=== PATIENT | male | born 1965 | race Caucasian/White ===

== ENCOUNTER 2019-11-23 07:37 | Emergency (ER) | payer SELFPAY ==
[2019-11-23 08:56] LABS: ABSOLUTE BASOPHILS # (AUTO) 0.1 10^3/uL (0.0-0.2); ABSOLUTE EOSINOPHILS # (AUTO) 0.1 10^3/uL (0.0-0.6); ABSOLUTE MONOCYTES (AUTO) 0.7 10^3/uL (0.1-1.4); ABSOLUTE NEUT (AUTO) 2.8 10^3/uL (1.7-8.2); BASOPHILS % (AUTO) 1.4 % (0-2); HEMATOCRIT 35.1 % (37.9-51.0); HEMOGLOBIN 11.6 g/dL (13.5-17.0); MEAN CORPUSCULAR HEMOGLOBIN 27.3 pg (27.0-33.4); MEAN CORPUSCULAR HGB CONC 33.1 g/dL (32.0-36.0); MEAN CORPUSCULAR VOLUME 82 fl (80-97); MONOCYTES % (AUTO) 12.8 % (3-13); PLATELET COUNT 368 10^3/uL (150-450); RED BLOOD COUNT 4.26 10^6/uL (4.35-5.55); RED CELL DISTRIBUTION WIDTH 18.5 % (11.5-14.0); SEGMENTED NEUTROPHILS % (AUTO) 48.8 % (42-78); TOTAL CELLS COUNTED % (AUTO) 100 %; WHITE BLOOD COUNT 5.8 10^3/uL (4.0-10.5)
[2019-11-23 09:20] LABS: ALBUMIN 4.9 g/dL (3.5-5.0); ALKALINE PHOSPHATASE 86 U/L (38-126); ANION GAP 11 (5-19); ASPARTATE AMINO TRANSFERASE 33 U/L (17-59); BILIRUBIN,DIRECT 0.1 mg/dL (0.0-0.4); BILIRUBIN,TOTAL 0.8 mg/dL (0.2-1.3); BLOOD UREA NITROGEN 18 mg/dL (7-20); CALCIUM 9.8 mg/dL (8.4-10.2); CARBON DIOXIDE 22 mmol/L (22-30); CHLORIDE 105 mmol/L (98-107); GLUCOSE 167 mg/dL (75-110); POTASSIUM 3.7 mmol/L (3.6-5.0); TOTAL PROTEIN 8.7 g/dL (6.3-8.2)
[2019-11-23] MEDS ORDERED: ONDANSETRON HCL INJ/PF 4 MG/2 ML SDV IV ONE (09:21)
--- NOTE | 2019-11-23 09:50 | ER Document Report ---
ED General - General Chief Complaint: Abdominal Pain Stated Complaint: ABDOMINAL PAIN Time Seen by Provider: 11/23/19 08:44 Primary Care Provider: MURIEL WEBB MD [ACTIVE STAFF] - Follow up as needed GUSTAVO LEACH MD [COMMUNITY BASED STAFF] - Follow up as needed Mode of Arrival: Ambulatory Information source: Patient TRAVEL OUTSIDE OF THE [place] IN LAST 30 DAYS: No - HPI Onset: Other - over the last week Onset/Duration: Gradual Quality of pain: Cramping, Sharp Severity: Severe Pain Level: 5 Associated symptoms: Nausea Exacerbated by: Other - palpation of stomach, movement of abdomen Relieved by: Denies Similar symptoms previously: No Recently seen / treated by doctor: Yes - patient was seen at an outside hospital for chest pain last week Notes: 54 year old male with a history of Hypertension, GERD s/p Fundoplication, Hiatal Hernia and Chronic Abdominal Pains/Nausea here in the ER for severe lower abdominal pain with nausea and sweating over the last week. The patient says he is visiting from [place]. The patient says he has chronic abdominal pain but this is different and much more severe. The patient was tachycardic, hypertensive, and diaphoretic on ER arrival. - Related Data Allergies/Adverse Reactions: hydroxyzine Allergy (Verified 11/23/19 09:32) ketorolac [From Toradol] Allergy (Verified 11/23/19 09:32) paroxetine [From Paxil] Allergy (Verified 11/23/19 09:32) Penicillins Allergy (Verified 11/23/19 09:32) prochlorperazine [From Compazine] Allergy (Verified 11/23/19 09:32) diphenhydramine [From Benadryl] Adverse Reaction (Verified 11/23/19 09:32) Past Medical History - General Information source: Patient - Social History Smoking Status: Current Every Day Smoker Frequency of alcohol use: None Drug Abuse: None Family History: Reviewed & Not Pertinent - Past Medical History Cardiac Medical History: Reports: Hx Hypertension GI Medical History: Reports: Other - Chronic Abdominal Pains, Chronic Nausea Review of Systems - Review of Systems Constitutional: Diaphoresis EENT: No symptoms reported Cardiovascular: No symptoms reported Respiratory: No symptoms reported Gastrointestinal: Abdominal pain, Nausea Genitourinary: No symptoms reported Male Genitourinary: No symptoms reported Musculoskeletal: No symptoms reported Skin: No symptoms reported Hematologic/Lymphatic: No symptoms reported Neurological/Psychological: No symptoms reported -: Yes All other systems reviewed and negative Physical Exam - Vital signs Vitals: Temp Pulse Resp BP Pulse Ox 98.6 F 140 H 24 H 144/111 H 98 11/23/19 07:41 11/23/19 07:41 11/23/19 07:41 11/23/19 07:41 11/23/19 07:41 - Notes Notes: GENERAL: somewhat ill-appearing, sweating, in moderate acute distress. HEAD: Atraumatic, normocephalic. EYES: Pupils equal round and reactive to light, extraocular movements intact, sclera anicteric, conjunctiva are normal. ENT: External ears normal, nares patent, oropharynx clear without exudates. M oist mucous membranes. NECK: Normal range of motion, supple without lymphadenopathy or JVD. LUNGS: Breath sounds clear to auscultation bilaterally and equal. No wheezes rales or rhonchi. HEART: Tachycardic with normal rhythm without murmurs, rubs or gallops. ABDOMEN: Soft, severe lower abdominal tenderness (worse on right than left). Normoactive bowel sounds. Guarding noted with no rebound. No masses appreciated. EXTREMITIES: Normal range of motion, no pitting or edema. No clubbing or cyanos is. NEUROLOGICAL: Cranial nerves II through XII grossly intact. Normal speech, normal gait. PSYCH: Normal mood, normal affect. SKIN: Warm, Dry, normal turgor, no rashes or lesions noted. Course - Re-evaluation Re-evalutation: 11/23/19 20:57 The patient came to the ER for abdominal pain with nausea and vomiting. Lab work and CT were unremarkable. Patient was initially diaphoretic and in what appeared to be a fair amount of pain. After treatment with IV pain medication and blood pressure medication his symptoms and vitla signs improved dramatically. There may a component of drug seeking and drug withdrawal. Patient is not from here so no prior images or labs were available at the time of his ER visit. Patient DCed and told to follow up with his PCP. - Vital Signs Vital signs: Temp Pulse Resp BP Pulse Ox 98.3 F 140 H 12 140/87 H 98 11/23/19 08:00 11/23/19 07:41 11/23/19 14:00 11/23/19 14:00 11/23/19 14:00 - Laboratory Result Diagrams: 11/23/19 08:13 11/23/19 08:13 Laboratory results interpreted by me: 11/23/19 11/23/19 11/23/19 08:13 08:13 09:56 RBC 4.26 L Hgb 11.6 L Hct 35.1 L RDW 18.5 H Creatinine 1.27 H Est GFR (MDRD) Non-Af 59 L Glucose 167 H Total Protein 8.7 H Urine Protein 100 H - Diagnostic Test Radiology reviewed: Image reviewed, Reports reviewed Discharge - Discharge Clinical Impression: Abdominal pain Qualifiers: Abdominal location: generalized Qualified Code(s): R10.84 - Generalized abdominal pain Nausea & vomiting Qualifiers: Vomiting type: unspecified Vomiting Intractability: non-intractable Qualified Code(s): R11.2 - Nausea with vomiting, unspecified Condition: Stable Disposition: HOME, SELF-CARE Instructions: Abdominal Pain ([facility]), Nausea or Vomiting, Nonspecific ([facility]) Additional Instructions: You came to the ER for abdominal pain, nausea, and vomiting. You had unremarkable blood work except for slightly elevated glucose. You had a CT scan of your abdomen/pelvis which showed no acute process. Follow up with your primary care doctor and consider follow up with a GI Doctor since it seems you have chronic GI issues. If you plan on staying in the area long, you can follow up with the providers listed. Prescriptions: Famotidine 40 mg PO BID PRN #30 tablet PRN Reason: Metoclopramide HCl [Reglan 10 mg Tablet] 10 mg PO Q8H PRN #20 tablet PRN Reason: Referrals: MURIEL WEBB MD [ACTIVE STAFF] - Follow up as needed GUSTAVO LEACH MD [COMMUNITY BASED STAFF] - Follow up as needed
[2019-11-23] MEDS ORDERED: MORPHINE SULFATE 10 MG/ML INJ IV ONE (09:57)
[2019-11-23] MEDS ORDERED: NORMAL SALINE 1000 ML 1,000 ML IV ONE (09:57)
[2019-11-23] MEDS ORDERED: METOCLOPRAMIDE HCL INJ/PF 10 MG/2 ML SDV IV ONE (09:58)
[2019-11-23 10:47] LABS: APPEARANCE,URINE TURBID; BILIRUBIN,URINE NEGATIVE (NEGATIVE); COLOR,URINE AMBER; GLUCOSE, URINE NEGATIVE (NEGATIVE); KETONES,URINE NEGATIVE (NEGATIVE); LEUKOCYTE ESTERASE,URINE NEGATIVE (NEGATIVE); NITRITE,URINE NEGATIVE (NEGATIVE); PROTEIN,URINE 100 mg/dL (NEGATIVE); UROBILINOGEN,URINE NEGATIVE mg/dL (<2.0)
[2019-11-23 10:58] LABS: ADD MANUAL MICROSCOPIC YES
[2019-11-23 10:59] LABS: AMORPHOUS SEDIMENT,UR 2+; BACTERIA,URINE 3+ /HPF; RBC,URINE NONE SEEN /HPF; WBC,URINE 0-1 /HPF
--- NOTE | 2019-11-23 11:11 | EKG REPORT ---
SEVERITY:- BORDERLINE ECG - SINUS TACHYCARDIA PROBABLE LEFT ATRIAL ABNORMALITY : Confirmed by: Louise Kitchen MD 23-Nov-2019 11:10:16
--- NOTE | 2019-11-23 11:47 | RADIOLOGY REPORT (SQ) ---
EXAM DESCRIPTION: CT ABD/PELVIS WITH IV ONLY IMAGES COMPLETED DATE/TIME: 11/23/2019 10:22 am REASON FOR STUDY: eval for appendicitis. Right lower quadrant and periumbilical pain. COMPARISON: None. TECHNIQUE: CT scan of the abdomen and pelvis performed using helical scanning technique with dynamic intravenous contrast injection. No oral contrast. Images reviewed with lung, soft tissue, and bone windows. Reconstructed coronal and sagittal MPR images reviewed. Delayed images for evaluation of the urinary system also acquired. All images stored on PACS. All CT scanners at this facility use dose modulation, iterative reconstruction, and/or weight based d osing when appropriate to reduce radiation dose to as low as reasonably achievable (ALARA). [facility]: Dose Right [facility]: CareDose [facility]: Dose Right [facility]: Teradose 4D [facility]: [employer] CONTRAST TYPE AND DOSE: 98 mL Omnipaque 350- low osmolar. RENAL FUNCTION: GFR > 60. RADIATION DOSE: CT Rad equipment meets quality standard of care and radiation dose reduction techniq ues were employed. CTDIvol: 7.5 - 10.3 mGy. DLP: 1069 mGy-cm.. LIMITATIONS: None. FINDINGS: LOWER CHEST: No significant findings. No nodules or infiltrates. LIVER: Normal size. No masses. No dilated ducts. SPLEEN: Normal size. No focal lesions. PANCREAS: No masses. No significant calcifications. No adjacent inflammation or peripancreatic fluid collections. Pancreatic duct not dilated. GALLBLADDER: No identified stones by CT criteria. No inflammatory changes to suggest cholecystitis. ADRENAL GLANDS: No significant masses or asymmetry. RIGHT KIDNEY AND URETER: No solid masses. No significant calcifications. No hydronephrosis or hyd roureter. LEFT KIDNEY AND URETER: Technically too small to characterize left superior pole renal cortical lesio n demonstrates no enhancement on postcontrast images, probably a small renal cortical cyst. No sign ificant calcifications. No hydronephrosis or hydroureter. AORTA AND VESSELS: No aneurysm. No dissection. Renal arteries, SMA, celiac without stenosis. RETROPERITONEUM: No retroperitoneal adenopathy, hemorrhage or masses. BOWEL AND PERITONEAL CAVITY: Colonic diverticulosis without evidence of diverticulitis. No bowel obs truction. No bowel wall thickening. No significant inflammatory change. No ascites or pneumoperito neum. APPENDIX: Normal. PELVIS: No mass. No free fluid. Normal bladder. ABDOMINAL WALL: No masses. No hernias. BONES: Vertebral body hemangioma at L4. No suspicious bone lesions. OTHER: No other significant finding. IMPRESSION: 1. Appendix is normal. No acute abnormality to explain the patient's symptoms. 2. Colonic diverticulosis without evidence of diverticulitis. TECHNICAL DOCUMENTATION: JOB ID: [id number] Quality ID # [id number]: Final reports with documentation of one or more dose reduction techniques (e.g., Au tomated exposure control, adjustment of the mA and/or kV according to patient size, use of iterative reconstruction technique) 2010 [employer]- All Rights Reserved Reading location - IP/workstation name: [email or web address]
[2019-11-23] MEDS ORDERED: LABETALOL HCL INJ 20 MG/4 ML DISP.SYRIN IV ONE (11:53)
[2019-11-23] MEDS ORDERED: FAMOTIDINE INJ/PF 20 MG/2 ML SDV IV ONE (11:53)
[2019-11-23 14:57] VITALS: BP 140/87
== END 2019-11-23 14:57 | disposition home or self-care (01) ==
LOC: ER 07:37
DX: R10.84 Generalized abdominal pain (principal); R11.2 Nausea with vomiting, unspecified; R10.30 Lower abdominal pain, unspecified; R61 Generalized hyperhidrosis; R00.0 Tachycardia, unspecified; I10 Essential (primary) hypertension; Z88.8 Allergy status to other drugs, medicaments and biological substances; Z88.0 Allergy status to penicillin; F17.200 Nicotine dependence, unspecified, uncomplicated
CPT/HCPCS: 93005; 99284; 96361; 96374; 96375; 36415; 83690; 85025; 80053; 81001; 74177; 93010; J3490; J2765; J2270; J2405; J7030; S0028

== ENCOUNTER 2019-11-23 20:43 | Emergency (ER) | payer SELFPAY ==
[2019-11-23] MEDS ORDERED: HALOPERIDOL LACTATE INJ 5 MG/1 ML VIAL IM ONE (22:22)
[2019-11-23] MEDS ORDERED: BENZTROPINE MESYLATE INJ 2 MG/2 ML AMPULE IM STA (22:22)
--- NOTE | 2019-11-23 22:26 | ER Document Report ---
ED General - General Chief Complaint: Abdominal Pain Stated Complaint: NAUSEA VOMITING Time Seen by Provider: 11/23/19 22:01 Notes: 54 year old male moved here to visit family after living in [facility] recently. No fever or chills. Abdominal pain and h/o cyclic vomiting, abdominal migraines and chronic pain - neck, low back and pacemaker site. No chest pain and no sob. Recently had comprehensive workup here including blood work and ct and has had distant abdominal surgery to include hernia repair and esha fundiplication. TRAVEL OUTSIDE OF THE [place] IN LAST 30 DAYS: No - Related Data Allergies/Adverse Reactions: hydroxyzine Allergy (Verified 11/23/19 21:02) ketorolac [From Toradol] Allergy (Verified 11/23/19 21:02) paroxetine [From Paxil] Allergy (Verified 11/23/19 21:02) Penicillins Allergy (Verified 11/23/19 21:02) prochlorperazine [From Compazine] Allergy (Verified 11/23/19 21:02) diphenhydramine [From Benadryl] Adverse Reaction (Verified 11/23/19 21:02) Past Medical History - Social History Smoking Status: Former Smoker Family History: Reviewed & Not Pertinent Patient has homicidal ideation: No - Past Medical History Cardiac Medical History: Reports: Hx Hypertension Pulmonary Medical History: Reports: Hx COPD GI Medical History: Reports: Hx Gastroesophageal Reflux Disease Past Surgical History: Reports: Hx Abdominal Surgery, Hx Cardiac Surgery - pacemaker Review of Systems - Review of Systems Constitutional: No symptoms reported EENT: No symptoms reported Cardiovascular: No symptoms reported Respiratory: No symptoms reported Gastrointestinal: See HPI Genitourinary: No symptoms reported Male Genitourinary: No symptoms reported Musculoskeletal: No symptoms reported Skin: No symptoms reported Hematologic/Lymphatic: No symptoms reported Neurological/Psychological: No symptoms reported Physical Exam - Vital signs Vitals: Resp Pulse Ox 12 97 11/23/19 20:59 11/23/19 20:59 Interpretation: Normal - General General appearance: Appears well, Alert - HEENT Head: Normocephalic, Atraumatic Eyes: Normal Pupils: PERRL - Respiratory Respiratory status: No respiratory distress Chest status: Nontender Breath sounds: Normal Chest palpation: Normal - Cardiovascular Rhythm: Regular Heart sounds: Normal auscultation Murmur: No - Abdominal Inspection: Normal Distension: No distension Bowel sounds: Normal Tenderness: Nontender Organomegaly: No organomegaly - Back Back: Normal, Nontender - Extremities General upper extremity: Normal inspection, Nontender, Normal color, Normal ROM, Normal temperature General lower extremity: Normal inspection, Nontender, Normal color, Normal ROM, Normal temperature, Normal weight bearing. No: Bentley's sign - Neurological Neuro grossly intact: Yes Cognition: Normal Orientation: AAOx4 Jew[place] Coma Scale Eye Opening: Spontaneous [place] Coma Scale Verbal: Oriented [place] Coma Scale Motor: Obeys Commands [place] Coma Scale Total: 15 Speech: Normal Motor strength normal: LUE, RUE, LLE, RLE Sensory: Normal - Psychological Associated symptoms: Normal affect, Normal mood - Skin Skin Temperature: Warm Skin Moisture: Dry Skin Color: Normal Course - Re-evaluation Re-evalutation: 11/24/19 00:52 MDM 54 year old with cyclic vomiting. Better here after treatment. Smoker - including marijuania and elevated BP. Knows to follow up. - Vital Signs Vital signs: Temp Pulse Resp BP Pulse Ox 98.5 F 109 H 17 162/108 H 96 11/24/19 01:03 11/23/19 21:03 11/24/19 01:00 11/24/19 01:00 11/24/19 01:00 Discharge - Discharge Clinical Impression: Cyclical vomiting, Tetrahydrocannabinol (THC) use disorder, moderate, dependence Condition: Good Disposition: HOME, SELF-CARE Instructions: Abdominal Pain ([facility]), Antinausea Medication ([facility]), Family Physicians / Practices, Vomiting ([facility]) Additional Instructions: See a primary doctor in follow up. Rest, Take your medicine as directed. Your blood pressure was elevated and needs to be rechecked.
[2019-11-23 23:21] LABS: URINE AMPHETAMINES SCREEN NEGATIVE; URINE BARBITURATES SCREEN NEGATIVE; URINE BENZODIAZEPINES SCREEN NEGATIVE; URINE COCAINE SCREEN NEGATIVE; URINE METHADONE SCREEN NEGATIVE; URINE PHENCYCLIDINE SCREEN NEGATIVE
[2019-11-23 23:22] LABS: URINE MARIJUANA (THC) SCREEN UNCONFIRMED POSITIVE
[2019-11-24 01:03] VITALS: BP 162/108
== END 2019-11-24 01:07 | disposition home or self-care (01) ==
LOC: ER 20:43
DX: R11.15 Cyclical vomiting syndrome unrelated to migraine (principal); F12.20 Cannabis dependence, uncomplicated; R10.9 Unspecified abdominal pain; R11.2 Nausea with vomiting, unspecified; Z88.8 Allergy status to other drugs, medicaments and biological substances; Z88.0 Allergy status to penicillin; Z87.891 Personal history of nicotine dependence; I10 Essential (primary) hypertension; J44.9 Chronic obstructive pulmonary disease, unspecified
CPT/HCPCS: 99284; 96372; 80307; J0515; J1630

== ENCOUNTER 2020-02-17 15:12 | Emergency (ER) | payer SELFPAY ==
[2020-02-17] MEDS ORDERED: ONDANSETRON HCL INJ/PF 4 MG/2 ML SDV IV ONE (15:24)
[2020-02-17] MEDS ORDERED: NORMAL SALINE 1000 ML 1,000 ML IV ONE (15:26)
[2020-02-17] MEDS ORDERED: ONDANSETRON HCL INJ/PF 4 MG/2 ML SDV ONE (15:29)
[2020-02-17] MEDS ORDERED: MORPHINE SULFATE 10 MG/ML INJ IV ONE (15:33)
--- NOTE | 2020-02-17 15:33 | ER Document Report ---
ED Medical Screen (RME) - General Chief Complaint: Abdominal Pain Stated Complaint: UPPER ABDOMINAL PAIN Time Seen by Provider: 02/17/20 15:24 Mode of Arrival: Wheelchair Information source: Patient Notes: 54-year-old male presented to ED for complaint of severe abdominal pain. He is diaphoretic he is grunting in pain. We have started IV we have started blood work have ordered a CT IV contrasted abdomen pelvis he does have a history of pancreatitis hepatitis C and high blood pressure. His blood pressure is triple over triple. He is in a lot of distress. He has been given Zofran and IV fluids started. I have spoken with the charge nurse and let her know that I needed a room immediately. I have greeted and performed a rapid initial assessment of this patient. A comprehensive ED assessment and evaluation of the patient, analysis of test results and completion of medical decision making process will be conducted by an additional ED providers. TRAVEL OUTSIDE OF THE [place] IN LAST 30 DAYS: No - Related Data Allergies/Adverse Reactions: hydroxyzine Allergy (Verified 11/23/19 21:02) ketorolac [From Toradol] Allergy (Verified 11/23/19 21:02) paroxetine [From Paxil] Allergy (Verified 11/23/19 21:02) Penicillins Allergy (Verified 11/23/19 21:02) prochlorperazine [From Compazine] Allergy (Verified 11/23/19 21:02) diphenhydramine [From Benadryl] Adverse Reaction (Verified 11/23/19 21:02) Past Medical History - Past Medical History Cardiac Medical History: Reports: Hx Hypertension Pulmonary Medical History: Reports: Hx COPD GI Medical History: Reports: Hx Gastroesophageal Reflux Disease Past Surgical History: Reports: Hx Abdominal Surgery, Hx Cardiac Surgery - pacemaker Physical Exam - Vital signs Vitals: Temp Pulse Resp BP Pulse Ox 98.7 F 138 H 28 H 194/125 H 100 02/17/20 15:16 02/17/20 15:16 02/17/20 15:16 02/17/20 15:16 02/17/20 15:16 Course - Vital Signs Vital signs: Temp Pulse Resp BP Pulse Ox 98.7 F 138 H 28 H 194/125 H 100 02/17/20 15:16 02/17/20 15:16 02/17/20 15:16 02/17/20 15:16 02/17/20 15:16
[2020-02-17] MEDS ORDERED: HYDROMORPHONE HCL INJ/PF 2 MG/ML AMPULE IV ONE (15:40)
--- NOTE | 2020-02-17 15:50 | ER Document Report ---
Doctor's Note Notes: 02/17/20 15:50 Patient presents in extreme abdominal pain today. Patient reports has a history of pancreatitis and a history of hiatal hernia surgery with a Meño fundoplication that is nonfunctional at this time. Patient was seen in triage and was prescribed IV morphine which did not help patient and his pain at this t livia. Patient sinus tachycardia rate of 130s. Patient able to speak in sentences however speaks about pain in his epigastric right upper quadrant region. Denies hematemesis or melena. See vital signs. Lungs are clear abdomen tenderness in the right upper quadrant mid gastric epigastric region. Verbal order given to give IV Dilaudid 1 mg. Case discussed with Dr. Gonzalez who will follow up and assume care of this patient.
[2020-02-17 15:51] LABS: ABSOLUTE BASOPHILS # (AUTO) 0.1 10^3/uL (0.0-0.2); ABSOLUTE LYMPHOCYTES (AUTO) 1.7 10^3/uL (0.5-4.7); ABSOLUTE NEUT (AUTO) 6.5 10^3/uL (1.7-8.2); EOSINOPHILS % (AUTO) 0.4 % (0-6); HEMATOCRIT 40.1 % (37.9-51.0); HEMOGLOBIN 12.9 g/dL (13.5-17.0); LYMPHOCYTES % (AUTO) 18.5 % (13-45); MEAN CORPUSCULAR HEMOGLOBIN 25.9 pg (27.0-33.4); MEAN CORPUSCULAR HGB CONC 32.2 g/dL (32.0-36.0); MEAN CORPUSCULAR VOLUME 81 fl (80-97); PLATELET COUNT 428 10^3/uL (150-450); RED BLOOD COUNT 4.98 10^6/uL (4.35-5.55); RED CELL DISTRIBUTION WIDTH 20.2 % (11.5-14.0); SEGMENTED NEUTROPHILS % (AUTO) 69.1 % (42-78); TOTAL CELLS COUNTED % (AUTO) 100 %; WHITE BLOOD COUNT 9.3 10^3/uL (4.0-10.5)
[2020-02-17 16:06] LABS: ALBUMIN 5.6 g/dL (3.5-5.0); ALKALINE PHOSPHATASE 112 U/L (38-126); ANION GAP 18 (5-19); ASPARTATE AMINO TRANSFERASE 76 U/L (17-59); BILIRUBIN,DIRECT 0.5 mg/dL (0.0-0.4); BILIRUBIN,TOTAL 1.1 mg/dL (0.2-1.3); BLOOD UREA NITROGEN 18 mg/dL (7-20); CALCIUM 10.7 mg/dL (8.4-10.2); CARBON DIOXIDE 19 mmol/L (22-30); CHLORIDE 110 mmol/L (98-107); CREATINE KINASE 273 U/L (55-170); GLUCOSE 144 mg/dL (75-110); POTASSIUM 4.6 mmol/L (3.6-5.0); TOTAL PROTEIN 10.9 g/dL (6.3-8.2)
--- NOTE | 2020-02-17 17:58 | ER Document Report ---
ED General - General Mode of Arrival: Wheelchair TRAVEL OUTSIDE OF THE [place] IN LAST 30 DAYS: No <DEEPIKA JOHNSON - Last Filed: 02/17/20 20:26> <VJ JARRETT IV - Last Filed: 02/18/20 00:08> - General Chief Complaint: Abdominal Pain Stated Complaint: UPPER ABDOMINAL PAIN Time Seen by Provider: 02/17/20 15:24 Primary Care Provider: LUCY CULLEN MD [HONORARY] - Follow up as needed - [facility] Notes: Chief complaint: Abdominal pain History of present illness: 54-year-old male presents complaining of 3-day history of worsening intermittent epigastric pain and burning which he thinks may be related to a hiatal hernia. He has been nauseated but has not vomited. He denies fever or chills. He denies any dark stools or rectal bleeding. This man is visiting here from [facility]. He has been seen at least once previously in this emergency department under similar circumstances it was felt at that time to have probable cyclic vomiting syndrome. When I talk with him about his symptoms he is actually been having these episodes on and o ff for over 7 years. He initially denied drug abuse but then freely admits that he is smoking marijuana every day. He has had major problems with alcohol in the past but says he has been totally abstinent from alcohol for over 6 months. He has a history of severe gastroesophageal reflux and has had a Linda fundoplication in the past. He denies any history of gallbladder disease or peptic ulcer disease but says he has had gastritis. He also has a history of hepatitis C which apparently has not been treated. Patient is a past cigarette smoker but no longer smokes. He has a history of bipolar disorder and also a history of hypertension which is been difficult to control. He says he takes clonidine 3 times a day. He says his been vomiting today and has not been able to keep down his blood pressure medicine. He specifically denies use of cocaine. (DEEPIKA JOHNSON) - Related Data Allergies/Adverse Reactions: hydroxyzine Allergy (Verified 11/23/19 21:02) ketorolac [From Toradol] Allergy (Verified 11/23/19 21:02) paroxetine [From Paxil] Allergy (Verified 11/23/19 21:02) Penicillins Allergy (Verified 11/23/19 21:02) prochlorperazine [From Compazine] Allergy (Verified 11/23/19 21:02) diphenhydramine [From Benadryl] Adverse Reaction (Verified 11/23/19 21:02) Past Medical History - General Information source: Patient, [facility] Records - Social History Smoking Status: Former Smoker Frequency of alcohol use: None Drug Abuse: Marijuana Family History: Reviewed & Not Pertinent Patient has homicidal ideation: No - Past Medical History Cardiac Medical History: Reports: Hx Hypertension Pulmonary Medical History: Reports: Hx COPD Endocrine Medical History: Denies: Hx Diabetes Mellitus Type 1, Hx Diabetes Cayla litus Type 2 GI Medical History: Reports: Hx Gastroesophageal Reflux Disease, Hx Hepatitis, Hx Hiatal Hernia, Hx Pancreatitis Psychiatric Medical History: Reports: Hx Bipolar Disorder Past Surgical History: Reports: Hx Abdominal Surgery, Hx Cardiac Surgery - pacemaker - removed <DEEPIKA JOHNSON - Last Filed: 02/17/20 20:26> Review of Systems <DEEPIKA JOHNSON - Last Filed: 02/17/20 20:26> - Review of Systems Notes: Constitutional: Negative for fever. HENT: Negative for sore throat. Eyes: Negative for visual changes. Cardiovascular: Negative for chest pain. Respiratory: Negative for shortness of breath. Gastrointestinal: As per HPI. Genitourinary: Negative for dysuria. Musculoskeletal: Negative for back pain. Skin: Negative for rash. Neurological: Negative for headaches, focal weakness or numbness. 10 point ROS negative except as marked above and in HPI. (DEEPIKA JOHNSON) Physical Exam - Vital signs Interpretation: Hypertensive <DEEPIKA JOHNSON E - Last Filed: 02/17/20 20:26> - Vital signs Vitals: Temp Pulse Resp BP Pulse Ox 98.7 F 138 H 28 H 194/125 H 100 02/17/20 15:16 02/17/20 15:16 02/17/20 15:16 02/17/20 15:16 02/17/20 15:16 - Notes Notes: GENERAL: Well-developed well-nourished middle-age male appearing moderately uncomfortable. SKIN: Mildly diaphoretic. Good turgor no rashes. HEAD: Normocephalic atraumatic. EYES: PERRLA. EOMI. Conjunctivae and sclerae clear. EARS: CANALS AND TMS CLEAR. NOSE: CLEAR. MOUTH: Moist mucosa. Good dentition. No stridor or edema. No drooling. NECK: Supple. No masses or thyromegaly. No adenopathy. Carotids 2+ without bruits. No JVD. BACK: Symmetrical without tenderness. CHEST: Respirations unlabored. Breath sounds clear and symmetrical. HEART: Regular rhythm. No murmur gallop or rub. ABDOMEN: Mild epigastric tenderness. Soft without masses, organomegaly or rebound. Bowel sounds normally active. No bruits. GENITALIA: Deferred. EXTREMITIES: No edema. No calf tenderness. Cap refill less than 1.5 seconds. Dorsalis pedis and posterior tibial pulses 3+ and symmetrical. NEUROLOGICAL: GCS 15. Alert and oriented x3. Fluent speech. Cranial nerves II through XII intact. Sensorimotor and cerebellar normal. Normal tone. PSYCHIATRIC: Appropriate affect. (DEEPIKA JOHNSON) Course - Laboratory Result Diagrams: 02/17/20 15:30 02/17/20 15:30 <DEEPIKA JOHNSON - Last Filed: 02/17/20 20:26> - Laboratory Result Diagrams: 02/17/20 15:30 02/17/20 15:30 <VJ JARRETT IV - Last Filed: 02/18/20 00:08> - Re-evaluation Re-evalutation: 02/17/20 20:27 Patient appears to have cyclic vomiting related to chronic use of cannabinoids. CT of abdomen and pelvis showed a small fat-containing abdominal wall hernia which is probably clinically unrelated. He has mild abnormality of his transaminase values. He has a known history of hepatitis C. Because of his complaint of abdominal discomfort I also got ultrasound of the gallbladder which was read as negative by radiologist. Urine drug screen was positive for cannabis but negative for cocaine. Patient subsequently has received some IV Haldol. He got several doses of IV medications for his blood pressure. Patient is still complaining of some abdominal discomfort. Further care of this man is turned over to Dr. Vj Jarrett at 2000 hours. (DEEPIKA JOHNSON) 02/18/20 00:05 Patient's blood pressure is now 170/95. O2 sats 98% on room air heart rate 90. Patient's symptoms improved at this time. Will DC home (VJ JARRETT IV) - Vital Signs Vital signs: Temp Pulse Resp BP Pulse Ox 98.7 F 138 H 14 170/95 H 100 02/17/20 15:16 02/17/20 15:16 02/18/20 00:01 02/18/20 00:00 02/18/20 00:01 - Laboratory Laboratory results interpreted by me: 02/17/20 02/17/20 02/17/20 15:30 15:30 18:58 Hgb 12.9 L MCH 25.9 L RDW 20.2 H Sodium 147.1 H Chloride 110 H Carbon Dioxide 19 L Creatinine 1.29 H Est GFR (MDRD) Non-Af 58 L Glucose 144 H Calcium 10.7 H Direct Bilirubin 0.5 H AST 76 H ALT 54 H Creatine Kinase 273 H Total Protein 10.9 H Albumin 5.6 H Urine Protein 30 H Urine Ketones 20 H Urine Ascorbic Acid 20 H - EKG Interpretation by Me Additional EKG results interpreted by me: 02/17/20 18:00 Twelve-lead EKG from 1537 hrs. reviewed contemporaneously by me. Sinus tachycardia with rate of 140. Moderate somatic tremor artifact. Normal axis of 89 degrees. Intervals are normal. No acute ST/T wave changes are present. Comparison with prior study of 11/23/2019 shows increase in rate but otherwise no new changes. Indication for current study: Tachycardia Interpretation: Sinus tachycardia and somatic tremor artifact. (DEEPIKA JOHNSON) Critical Care Note - Critical Care Note Total time excluding time spent on procedures (mins): 35 - IV labetalol and IV hydralazine for blood pressure <DEEPIKA JOHNSON - Last Filed: 02/17/20 20:26> Discharge <DEEPIKA JOHNSON - Last Filed: 02/17/20 20:26> <VJ JARRETT IV - Last Filed: 02/18/20 00:08> - Discharge Clinical Impression: Cannabis induced hyperemesis, Hypertensive urgency, Bipolar disorder Condition: Stable Disposition: HOME, SELF-CARE Additional Instructions: Return to the Emergency Department without delay if any worse. HOME CARE INSTRUCTIONS & INFORMATION: Thank you for choosing us for your medical needs. We hope you're satisfied with the care you received. After you leave, you must properly care for your problem and, at the same time, observe its progress. Any condition can change. Some illnesses can change rapidly over hours or days. If your condition worsens, return to the Emergency Department or see your physician promptly. ABOUT YOUR X-RAYS AND EKG'S: If you had an EKG or X-rays taken, they have been read by the Emergency Physician. The X-rays and EKG's will also be read by a Radiologist or Media Reporter within 24 hours. If discrepancies are noted, you will be notified by telephone. Please be certain the ED has a correct telephone number & address where you can be reached. Also, realize that some fractures or abnormalities do not show up on initial X-rays. If your symptoms continue, see your physician. ABOUT YOUR LABORATORY TEST: If you had laboratory tests, the results have been reviewed by the Emergency Physician. Some test results (for example cultures) may not be available for several days. You will be contacted if any test result shows you need additional treatment. Please be certain the ED has a correct telephone number and address where you can be reached. ABOUT YOUR MEDICATIONS: You will receive instructions on how to take your medicine on the prescription label you receive. Additional information may be provided by the Pharmacy. If you have questions afterwards, call the ED for clarification or further instructions. Some prescribed medications may cause drowsiness. Do not perform tasks such as driving a car or operating machinery without consulting your Pharmacist. If you feel you need a refill of pain medication, your condition will need re-evaluation. Please do not call for a refill of any medication. ABOUT YOUR SIGNATURE: Signature of this document acknowledges to followin. Understanding that you received emergency treatment and that you may be released before al medical problems are known or treated. Please be certain the ED has a correct phone number & address where you can be reached. 2. Acknowledgement that you will arrange for follow-up care as recommended. 3. Authorization for the Emergency Physician to provide information to your follow-up Physician in order to maximize your care. AT ANY TIME, IF YOUR SYMPTOMS CHANGE SIGNIFICANTLY OR WORSEN OR YOU DEVELOP NEW SYMPTOMS, RETURN TO THE EMERGENCY DEPARTMENT IMMEDIATELY FOR RE-EVALUATION. OUR GOAL IS TO PROVIDE EXCELLENT MEDICAL CARE! WE HOPE THAT WE HAVE MET YOUR EXPECTATIONS DURING YOUR EMERGENCY DEPARTMENT VISIT AND THAT YOU FEEL YOU HAVE RECEIVED EXCELLENT CARE! Referrals: LUCY CULLEN MD [HONORARY] - Follow up as needed
[2020-02-17] MEDS ORDERED: HYDRALAZINE HCL INJ/PF 20 MG/1 ML SDV IV ONE (18:07)
--- NOTE | 2020-02-17 18:34 | EKG REPORT ---
SEVERITY:- ABNORMAL ECG - SINUS TACHYCARDIA LATERAL INFARCT, OLD : Confirmed by: Gene Johnston MD 17-Feb-2020 18:34:15
--- NOTE | 2020-02-17 18:46 | RADIOLOGY REPORT (SQ) ---
EXAM DESCRIPTION: RadLex: CT ABDOMEN PELVIS WITH IV CONTRAST CLINICAL HISTORY: 54 years Male; pancreatitis; TECHNIQUE: CT of the abdomen and pelvis using intravenous contrast. All CT scans at this facility use dose modulation, iterative reconstruction, and/or weight based dosing when appropriate to reduce radiation dose to as low as reasonably achievable. COMPARISON: CT 11/23/2019 FINDINGS: Abdomen: Stomach: No significant distention or surrounding edema. Liver:No focal lesions. No intrahepatic ductal distention. Gallbladder:Nondistended Pancreas:No acute edema or suspicious focal lesion. No ductal distention. Spleen:Within normal limits Right kidney:No hydronephrosis. No focal lesion. Left kidney:No hydronephrosis. No focal lesion. Adrenal glands:Within normal limits Vascular structures: Mild aortic and branch calcifications. No aneurysm or dissection. Pelvis: Small bowel:No significant distention. Appendix:Within normal limits Colon:No distention or acute pericolonic edema. No free intraperitoneal fluid or air. Bones: No acute bone findings. Bladder: Unremarkable. No pelvic mass or adenopathy. IMPRESSION: 1. No acute findings 2. No CT evidence for acute pancreatitis.
--- NOTE | 2020-02-17 19:00 | RADIOLOGY REPORT (SQ) ---
US ABDOMEN LIMITED HISTORY: Epigastric pain and abnormal liver function tests. COMPARISON: CT scan from earlier the same day. TECHNIQUE: Grayscale and color Doppler imaging of the right upper quadrant was performed. FINDINGS: The liver has normal echotexture without focal lesion identified. The main portal vein has normal hepatopetal flow. No shadowing gallstones are seen. No pericholecystic fluid or gallbladder wall thickening. The common bile duct is normal caliber. The pancreas is not well-visualized due to overlying bowel gas. No hydronephrosis or shadowing renal stones are identified. The right kidney is normal in size. The visualized portions of the IVC and aorta are patent. IMPRESSION: No acute abdominal findings are visualized.
[2020-02-17] MEDS ORDERED: HALOPERIDOL LACTATE INJ 5 MG/1 ML VIAL IV ONE (19:11)
[2020-02-17] MEDS ORDERED: LABETALOL HCL INJ 20 MG/4 ML DISP.SYRIN IV ONE (19:12)
[2020-02-17 19:31] LABS: APPEARANCE,URINE CLEAR; BILIRUBIN,URINE NEGATIVE (NEGATIVE); COLOR,URINE YELLOW; GLUCOSE, URINE NEGATIVE (NEGATIVE); KETONES,URINE 20 mg/dL (NEGATIVE); LEUKOCYTE ESTERASE,URINE NEGATIVE (NEGATIVE); NITRITE,URINE NEGATIVE (NEGATIVE); PROTEIN,URINE 30 mg/dL (NEGATIVE); UROBILINOGEN,URINE NEGATIVE mg/dL (<2.0)
[2020-02-17 19:32] LABS: URINE AMPHETAMINES SCREEN NEGATIVE; URINE BARBITURATES SCREEN NEGATIVE; URINE BENZODIAZEPINES SCREEN NEGATIVE; URINE COCAINE SCREEN NEGATIVE; URINE METHADONE SCREEN NEGATIVE; URINE PHENCYCLIDINE SCREEN NEGATIVE
[2020-02-17 19:33] LABS: URINE MARIJUANA (THC) SCREEN UNCONFIRMED POSITIVE
[2020-02-17 19:38] LABS: URINE SPECIFIC GRAVITY > 1.060
[2020-02-17] MEDS ORDERED: LIDOCAINE 2% VISCOUS SOLN 15 ML UDCUP PO ONE (21:09)
[2020-02-17] MEDS ORDERED: MAG HYDROX/AL HYDROX/SIMETH SUSP 30 ML UDCUP PO ONE (21:10)
[2020-02-17] MEDS ORDERED: METOCLOPRAMIDE HCL ORAL SOLN 10 MG/10 ML UDCUP PO ONE (21:10)
[2020-02-17] MEDS ORDERED: DIAZEPAM INJ 10 MG/2 ML DISP.SYRIN IV ONE (22:58)
[2020-02-17] MEDS ORDERED: CLONIDINE HCL 0.1 MG TABLET PO ONE (22:59)
[2020-02-18 00:40] VITALS: BP 180/91
== END 2020-02-18 00:47 | disposition home or self-care (01) ==
LOC: ER 15:12
DX: I16.0 Hypertensive urgency (principal); F12.29 Cannabis dependence with unspecified cannabis-induced disorder; F31.9 Bipolar disorder, unspecified; R10.10 Upper abdominal pain, unspecified; R10.9 Unspecified abdominal pain; R10.13 Epigastric pain; Z87.891 Personal history of nicotine dependence; I10 Essential (primary) hypertension; Z79.899 Other long term (current) drug therapy; Z88.8 Allergy status to other drugs, medicaments and biological substances; Z88.0 Allergy status to penicillin; J44.9 Chronic obstructive pulmonary disease, unspecified
CPT/HCPCS: 93005; 99285; 96361; 96374; 96375; 36415; 87086; 80307 ×2; 82550; 83690; 85025; 80053; 81001; 84484; 76705; 74177; 93010; J3360; J1630; J0360; J3490 ×2; J2270; J1170; J7030; J2405

== ENCOUNTER 2020-06-15 01:18 | Inpatient (IN) | payer OTHER, MEDICAID ==
[2020-06-15] MEDS ORDERED: PANTOPRAZOLE SODIUM 40 MG VIAL IV ONE (02:23)
[2020-06-15 02:29] LABS: ABSOLUTE LYMPHOCYTES (AUTO) 0.9 10^3/uL (0.5-4.7); ABSOLUTE MONOCYTES (AUTO) 0.4 10^3/uL (0.1-1.4); ABSOLUTE NEUT (AUTO) 2.6 10^3/uL (1.7-8.2); BASOPHILS % (AUTO) 1.2 % (0-2); EOSINOPHILS % (AUTO) 0.3 % (0-6); HEMATOCRIT 36.5 % (37.9-51.0); HEMOGLOBIN 12.1 g/dL (13.5-17.0); LYMPHOCYTES % (AUTO) 22.5 % (13-45); MEAN CORPUSCULAR HEMOGLOBIN 26.5 pg (27.0-33.4); MEAN CORPUSCULAR HGB CONC 33.1 g/dL (32.0-36.0); MEAN CORPUSCULAR VOLUME 80 fl (80-97); MONOCYTES % (AUTO) 9.8 % (3-13); PLATELET COUNT 240 10^3/uL (150-450); RED BLOOD COUNT 4.56 10^6/uL (4.35-5.55); RED CELL DISTRIBUTION WIDTH 21.1 % (11.5-14.0); SEGMENTED NEUTROPHILS % (AUTO) 66.2 % (42-78); TOTAL CELLS COUNTED % (AUTO) 100 %; WHITE BLOOD COUNT 3.9 10^3/uL (4.0-10.5)
[2020-06-15] MEDS ORDERED: NORMAL SALINE 1000 ML 1,000 ML IV ONE (02:32)
[2020-06-15 02:38] LABS: ALBUMIN 4.7 g/dL (3.5-5.0); ALKALINE PHOSPHATASE 106 U/L (38-126); ANION GAP 19 (5-19); ASPARTATE AMINO TRANSFERASE 101 U/L (17-59); BILIRUBIN,DIRECT 0.2 mg/dL (0.0-0.4); BILIRUBIN,TOTAL 0.5 mg/dL (0.2-1.3); BLOOD UREA NITROGEN 11 mg/dL (7-20); CALCIUM 9.1 mg/dL (8.4-10.2); CARBON DIOXIDE 20 mmol/L (22-30); CHLORIDE 99 mmol/L (98-107); GLUCOSE 113 mg/dL (75-110); POTASSIUM 3.6 mmol/L (3.6-5.0); TOTAL PROTEIN 9.2 g/dL (6.3-8.2)
[2020-06-15] MEDS ORDERED: OCTREOTIDE ACETATE INJ/PF 100 MCG/1 ML SDV IV ONE ×2 (02:49→03:31)
[2020-06-15] MEDS ORDERED: MORPHINE SULFATE 10 MG/ML INJ IV ONE (02:51)
[2020-06-15 02:57] LABS: ALCOHOL 79 mg/dL (NONE DETECTED)
[2020-06-15 02:59] LABS: ACETAMINOPHEN < 10 ug/mL (10-30)
[2020-06-15 03:08] LABS: INTERNATIONAL RATION (INR) 0.98; PROTHROMBIN TIME 13.2 SEC (11.4-15.4)
--- NOTE | 2020-06-15 03:16 | RADIOLOGY REPORT (SQ) ---
EXAM DESCRIPTION: Site: CHEST SINGLE VIEW RP: XR CHEST 1 VIEW CLINICAL HISTORY: 54 years Male; chest pain; COMPARISON: None. FINDINGS: Lungs: Lungs are clear, with no focal infiltrate, pneumothorax, or pleural effusion. Mediastinum: Mediastinum is within normal limits for this positioning. Bones: Bony structures are unremarkable. IMPRESSION: 1. No acute pulmonary findings.
--- NOTE | 2020-06-15 03:57 | ER Document Report ---
ED GI/ - General Chief Complaint: Vomiting Stated Complaint: VOMITING Time Seen by Provider: 06/15/20 02:12 TRAVEL OUTSIDE OF THE [place] IN LAST 30 DAYS: No - HPI Notes: 06/15/20 03:55 Patient is a 54-year-old male with a past medical history of hepatitis C and blood clots on Eliquis who presents with vomiting. Patient states he began vomiting at home several times. He describes it as coffee ground. He has pain in his chest. He also complains of some right sided low back pain that has been there for several days. He saw his PCP for this but was not given a definitive answer. Patient admits to drinking some alcohol today. He states he was a heavy drinker in the past but now only drinks on occasion. Patient states that about a year ago he had a nissin fundoplication in [place]. He denies any other abdominal surgeries. Patient is visiting here because his family lives here. He states his recently from Covid in August. Of note, patient had a positive Covid test per EMS. Denying any symptoms. 06/15/20 05:50 - Related Data Allergies/Adverse Reactions: hydroxyzine Allergy (Verified 11/23/19 21:02) ketorolac [From Toradol] Allergy (Verified 11/23/19 21:02) paroxetine [From Paxil] Allergy (Verified 11/23/19 21:02) Penicillins Allergy (Verified 11/23/19 21:02) prochlorperazine [From Compazine] Allergy (Verified 11/23/19 21:02) diphenhydramine [From Benadryl] Adverse Reaction (Verified 11/23/19 21:02) Past Medical History - General Information source: Patient - Social History Smoking Status: Unknown if Ever Smoked Frequency of alcohol use: Occasional Family History: Reviewed & Not Pertinent - Past Medical History Cardiac Medical History: Reports: Hx Hypertension Pulmonary Medical History: Reports: Hx COPD Endocrine Medical History: Denies: Hx Diabetes Mellitus Type 1, Hx Diabetes Mellitus Type 2 GI Medical History: Reports: Hx Gastroesophageal Reflux Disease, Hx Hepatitis, Hx Hiatal Hernia, Hx Pancreatitis Psychiatric Medical History: Reports: Hx Bipolar Disorder Infectious Medical History: Reports: Hx Hepatitis Past Surgical History: Reports: Hx Abdominal Surgery, Hx Cardiac Surgery - pacemaker - removed Review of Systems - Review of Systems Notes: CONSTITUTIONAL: No fever, fatigue or weight loss. SKIN: No rash. CARDIOVASCULAR: Positive for chest pain. RESPIRATORY: No cough, shortness of breath, congestion, or wheezing. GASTROINTESTINAL: Positive for abdominal pain, nausea, vomiting. Positive for coffee-ground emesis. MUSCULOSKELETAL: No joint pain or swelling. NEUROLOGIC: No seizures. No headache, focal weakness or sensory changes. PSYCHIATRIC: No depression or anxiety. Physical Exam - Vital signs Vitals: Temp 99.3 F 06/15/20 01:30 - General General appearance: Anxious In distress: Mild Notes: VITAL SIGNS: Tachycardic GENERAL: Distress due to pain. HEAD: Normal with no signs of head trauma. EYES: EOMI, conjunctiva normal, no discharge. NECK: Normal range of motion, no tenderness, supple, no lymphadenopathy, No adenopathy, no JVD. CHEST: Clear breath sounds bilaterally. No wheezes, rales, or rhonchi. CARDIAC: Regular rate and rhythm. VASCULAR: No Edema. ABDOMEN: Normal and soft. Umbilical hernia, soft. MUSCULOSKELETAL: Good range of motion of all major joints. Extremities without clubbing, cyanosis or edema. NEUROLOGICAL: Alert and oriented x 3. No focal sensory or strength deficits. Speech normal. Follows commands appropriately. PSYCHIATRIC: Normal Affect, judgement and mood. SKIN: Normal appearance with no rashes or lesions. Course - Re-evaluation Re-evalutation: 06/15/20 05:53 Patient had a small amount of vomit produced in the ER. This was hemocculted and it was positive. Patient has not had any more vomiting since treatment. He appears much more calm. He states that his pain is now well controlled. I did obtain a CTA to evaluate for any active bleeding but this was negative. As he is on Eliquis, I did recommend he be observed in the hospital. He does not say specifically that he has ever had esophageal varices, however, this is a risk due to his history of alcoholism. Patient states he had an endoscopy but this was many years ago in [place]. I discussed plan with the patient and he is in agreement. I also discussed with Dr. Roman, from surgery, and he is okay with him staying in the hospital. He will be admitted by the hospitalist. 06/15/20 05:55 - Vital Signs Vital signs: Temp Pulse Resp BP Pulse Ox 99.3 F 06/15/20 01:30 - Laboratory Results Result Diagrams: 06/15/20 01:40 06/15/20 01:40 Laboratory Results Interpreted: 06/15/20 06/15/20 06/15/20 01:40 01:40 01:40 WBC 3.9 L Hgb 12.1 L Hct 36.5 L MCH 26.5 L RDW 21.1 H Carbon Dioxide 20 L Glucose 113 H AST 101 H ALT 84 H Total Protein 9.2 H Acetaminophen < 10 L Critical Laboratory Results Reviewed: No Critical Results - Radiology Results Critical Radiology Results Reviewed: No Critical Results - EKG Interpretation by Mt EKG shows normal: Sinus rhythm Rate: Tachycardia Rhythm: NSR When compared to previous EKG there are: Previous EKG unavailable Additional EKG results interpreted by nd: 06/15/20 05:57 Sinus tachycardia at a rate of 102. QTc 464. Artifact present. No acute ST changes. No previous EKG available for comparison. Discharge - Discharge Clinical Impression: Hematemesis Qualifiers: Nausea presence: with nausea Qualified Code(s): K92.0 - Hematemesis Condition: Stable Disposition: ADMITTED INPATIENT Admitting Provider: gimisso Unit Admitted: [facility]
--- NOTE | 2020-06-15 04:43 | RADIOLOGY REPORT (SQ) ---
EXAM DESCRIPTION: CT CHEST ANGIOGRAPHY WITHOUT THEN WITH IV CONTRAST, CT ABDOMEN PELVIS ANGIOGRAPHY WITHOUT THEN WITH IV CONTRAST COMPLETED DATE/TME: 06/15/2020 04:20 CLINICAL HISTORY: 54 years Male, vomiting blood, chest pain, stomach pain Comparison: CT abdomen and pelvis, February 17, 2020. Technique: IV contrast. Coronal and sagittal reformat. 3d reconstruction. This exam was performed according to our departmental dose-optimization program, which includes automated exposure control, adjustment of the mA and/or kV according to patient size and/or use of iterative reconstruction technique. [facility]: Dose Right [facility]: CareDose [facility]: Dose Right [facility]: Teradose 4D [facility]: [employer] LIMITATIONS: None Findings: CTA:No evidence of aortic aneurysm, dissection, or occlusion. Patent major vessels of the thorax, abdomen and pelvis including the subclavian, celiac, mesenteric, renal , and iliac arteries. No hemorrhage/hematoma. Coronary arterial calcification. Atherosclerotic vascular disease. Vascular system appears otherwise unremarkable. Colonic diverticulosis. Hepatic steatosis. Small left inguinal fat only hernia. No ascites. No pneumoperitoneum. Normal appendix. No gross evidence of gallbladder inflammation, hepatobiliary obstruction, or portal vein defect. No bowel obstruction. No hydronephrosis or hydroureter. No renal/ureteral stone. No evidence of abdominal aortic aneurysm. Inferior neck, axillae, mediastinum, lungs, airway, heart, liver, gallbladder, pancreas, spleen, adrenals, renal system, gastrointestinal tract, pelvic organs, lymphatics, vasculature, and musculoskeleton appear otherwise unremarkable. Impression: 1. No acute CTA findings. 2. Coronary arterial calcification. Atherosclerotic vascular disease. 3. Hepatic steatosis.
[2020-06-15] MEDS ORDERED: ACETAMINOPHEN 325 MG TABLET PO PRN (06:13)
[2020-06-15] MEDS ORDERED: ONDANSETRON HCL INJ/PF 4 MG/2 ML SDV IV PRN (06:13)
--- NOTE | 2020-06-15 06:32 | PDOC H&P ---
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 Patient reports that the bleeding amount of cup of coffee and he thought some clotted blood in it. Associated with this patient also endorses 1 day duration of epigastric pain. He states that he has been feeling dizzy. His last dose of apixaban was the morning before presentation. Patient also states that he lost his due to COVID-19 recently and reports few days duration of subjective fever, chills, occasional dry cough but denies any shortness of breath, chest pain, palpitation. Patient also denies history of melena, hematochezia, hematuria. Past Medical History Cardiac Medical History: Reports: Hypertension Pulmonary Medical History: Reports: Chronic Obstructive Pulmonary Disease (COPD) Endocrine Medical History: Denies: Diabetes Mellitus Type 1, Diabetes Mellitus Type 2 GI Medical History: Reports: Gastroesophageal Reflux Disease, Hepatitis, Hiatal Hernia Psychiatric Medical History: Reports: Bipolar Disorder Social History Information Source: Patient Lives with: Family Smoking Status: Unknown if Ever Smoked Hx Recreational Drug Use: No Drugs: None - Advance Directive Resuscitation Status: Full Code Family History Family History: Reviewed & Not Pertinent Parental Family History Reviewed: Yes Children Family History Reviewed: Yes Sibling(s) Family History Reviewed.: Yes Medication/Allergy Home Medications: Famotidine 40 mg PO BID PRN #30 tablet 11/23/19 Metoclopramide HCl [Reglan 10 mg Tablet] 10 mg PO Q8H PRN #20 tablet 11/23/19 Allergies/Adverse Reactions: hydroxyzine Allergy (Verified 11/23/19 21:02) ketorolac [From Toradol] Allergy (Verified 11/23/19 21:02) paroxetine [From Paxil] Allergy (Verified 11/23/19 21:02) Penicillins Allergy (Verified 11/23/19 21:02) prochlorperazine [From Compazine] Allergy (Verified 11/23/19 21:02) diphenhydramine [From Benadryl] Adverse Reaction (Verified 11/23/19 21:02) Review of Systems Constitutional: PRESENT: as per HPI Eyes: ABSENT: visual disturbances Ears: ABSENT: hearing changes Nose, Mouth, and Throat: ABSENT: headache(s), mouth pain, sore throat Cardiovascular: ABSENT: chest pain, dyspnea on exertion, edema, orthropnea, palpitations Respiratory: PRESENT: as per HPI Gastrointestinal: PRESENT: as per HPI Genitourinary: ABSENT: dysuria, hematuria Musculoskeletal: ABSENT: joint swelling Integumentary: ABSENT: rash, wounds Neurological: ABSENT: abnormal gait, abnormal speech, confusion, dizziness, focal weakness, syncope Psychiatric: ABSENT: anxiety, depression, homidical ideation, suicidal ideation Endocrine: ABSENT: cold intolerance, heat intolerance, polydipsia, polyuria Physical Exam Vital Signs: Temp Pulse Resp BP Pulse Ox 99.3 F 06/15/20 01:30 Intake & Output 06/13/20 06/14/20 06/15/20 06:59 06:59 06:59 Intake Total 1000 Balance 1000 Weight 90.718 kg Additional comments: GENERAL APPEARANCE: Alert and oriented x3, in no acute distress HEENT: Normocephalic and atraumatic. No scleral icterus. Moist oral mucosa NECK: Supple. No lymphadenopathy or tenderness. No JVD CHEST: Symmetric. Nontender to palpation. LUNGS: Clear with good air entry bilaterally. No wheezing or crackles HEART: Regular rate and rhythm with normal S1 and S2. No murmurs, gallops, or rubs. ABDOMEN: soft, active bowel sounds, no direct or rebound tenderness. No organomegaly detected. EXTREMITIES: No cyanosis, clubbing, or edema. MUSCULOSKELETAL: No deformity, atrophy or swelling noted PSYCHIATRIC: Recent and remote memory is intact. Appropriate mood and affect. SKIN: Warm, dry, and well perfused. No lesions or rashes are noted. NEUROLOGIC: No focal sensory or motor deficits are noted. Results Laboratory Results: 06/15/20 01:40 06/15/20 01:40 06/15/20 06/15/20 01:40 01:40 WBC 3.9 L RBC 4.56 Hgb 12.1 L Hct 36.5 L MCV 80 MCH 26.5 L MCHC 33.1 RDW 21.1 H Plt Count 240 Seg Neutrophils % 66.2 Sodium 138.4 Potassium 3.6 Chloride 99 Carbon Dioxide 20 L Anion Gap 19 BUN 11 Creatinine 1.21 Est GFR ( Amer) > 60 Glucose 113 H Calcium 9.1 Total Bilirubin 0.5 AST 101 H Alkaline Phosphatase 106 Total Protein 9.2 H Albumin 4.7 Lipase 145.2 06/15/20 01:40 Troponin I < 0.012 Impressions: Chest X-Ray 06/15/20 02:22 IMPRESSION: 1. No acute pulmonary findings. Assessment and Plan - Diagnosis (1) Upper GI bleed Is this a current diagnosis for this admission?: Yes Plan: Patient presents with 2 episodes of hematemesis and epigastric pain Currently he is hemodynamically stable Has a history of hep C infection, he drinks alcohol occasionally Has no peripheral stigmata of chronic liver disease Liver, spleen and portal system appeared normal on CT abdomen with no sign of cirrhosis H&H stable on this presentation with hemoglobin of 12.1 Patient was given a dose of of octreotide and a bolus of pantoprazole IV Continue IV PPI Will hold off on octreotide drip for now Hold anticoagulation Obtain 2 large-bore IV access Type and crossmatch Surgery consult placed for possible endoscopy Closely monitor for any sign of hemodynamic instability (2) COVID-19 virus infection Is this a current diagnosis for this admission?: Yes Plan: The patient reports subjective fevers, chills and dry cough Denies any shortness of breath Currently saturating well on room air Placed orders for ferritin, LDH, CRP, CK Placed him on vitamin C, vitamin D, zinc Continue supportive treatment Closely monitor respiratory status (3) History of DVT (deep vein thrombosis) Is this a current diagnosis for this admission?: Yes Plan: Patient reports that he had extensive upper extremity DVT involving including the subclavian Currently admitted for possible upper GI bleed Holding anticoagulation for now Consider hematology consult (4) Pulmonary embolus Is this a current diagnosis for this admission?: Yes Plan: Currently denies any chest pain or shortness of breath Anticoagulation held because of GI bleed (5) Uncontrolled hypertension Is this a current diagnosis for this admission?: Yes Plan: Patient has history of difficult to control hypertension and is on multiple antihypertensive Currently holding antihypertensive medications due to risk of hypotension from GI bleed - Time Time Spent with patient: 35 or more minutes Total Critical Time (Minutes): 45 Medications reviewed and adjusted accordingly: Yes Anticipated Discharge Disposition: Home, Self Care Anticipated Discharge Timeframe: within 72 hours - Inpatient Certification Based on my medical assessment, after consideration of the patient's comorbidities, presenting symptoms, or acuity I expect that the services needed warrant INPATIENT care.: Yes I certify that my determination is in accordance with my understanding of Medicare's requirements for reasonable and necessary INPATIENT services [42 CFR 412.3e].: Yes Medical Necessity: Significant Comorbidiites Make Outpatient Treatment Too Risky, Need Close Monitoring Due to Risk of Patient Decompensation, Need For IV Fluids, Risk of Complication if Not Cared For in Hospital Post Hospital Care: D/C or Transfer Summary
--- NOTE | 2020-06-15 06:47 | PDOC CONSULTATION ---
Consultation Consult Date: 06/15/20 Attending physician:: JULIEN ANN Provider Consulted: LEISA ZAMORA Consult reason:: GI bleed History of Present Illness Admission Date/PCP: 06/15/20 06:32 History of Present Illness: CEASAR ANN is a 54 year old male Originally from [facility], visiting family, history of heavy drinking, still drinking, on Eliquis for DVT PE who had 2 episodes of coffee- ground emesis. Hemodynamically stable, in fact uncontrolled hypertension. Hemoglobin 12.1. No previous episodes. Patient be admitted to medicine service for observation, with surgery backup for possible endoscopy. Patient's rapid Covid in the EMS positive; repeat PCR Covid at [facility] positive. Past Medical History Past Medical History: History of subclavian, and internal jugular DVT, with PE, anticoagulated. Cardiac Medical History: Reports: Hypertension Pulmonary Medical History: Reports: Chronic Obstructive Pulmonary Disease (COPD) Endocrine Medical History: Denies: Diabetes Mellitus Type 1, Diabetes Mellitus Type 2 GI Medical History: Reports: Gastroesophageal Reflux Disease, Hepatitis, Hiatal Hernia Psychiatric Medical History: Reports: Bipolar Disorder Past Surgical History Past Surgical History: History of a Linda fundoplication, colonoscopy Social History Information Source: Patient Smoking Status: Unknown if Ever Smoked Frequency of Alcohol Use: Heavy Hx Prescription Drug Abuse: No Family History Family History: None, Reviewed & Not Pertinent Parental Family History Reviewed: No Children Family History Reviewed: No Sibling(s) Family History Reviewed.: No Medication/Allergy Home Medications: Famotidine 40 mg PO BID PRN #30 tablet 11/23/19 Metoclopramide HCl [Reglan 10 mg Tablet] 10 mg PO Q8H PRN #20 tablet 11/23/19 Allergies/Adverse Reactions: hydroxyzine Allergy (Verified 11/23/19 21:02) ketorolac [From Toradol] Allergy (Verified 11/23/19 21:02) paroxetine [From Paxil] Allergy (Verified 11/23/19 21:02) Penicillins Allergy (Verified 11/23/19 21:02) prochlorperazine [From Compazine] Allergy (Verified 11/23/19 21:02) diphenhydramine [From Benadryl] Adverse Reaction (Verified 11/23/19 21:02) Review of Systems Constitutional: PRESENT: as per HPI Eyes: ABSENT: visual disturbances Ears: ABSENT: hearing changes Gastrointestinal: PRESENT: as per HPI Genitourinary: ABSENT: dysuria, hematuria Integumentary: ABSENT: rash, wounds Neurological: ABSENT: abnormal gait, abnormal speech, confusion, dizziness, focal weakness, syncope Physical Exam Vital Signs: Temp Pulse Resp BP Pulse Ox 99.3 F 06/15/20 01:30 Intake & Output 06/13/20 06/14/20 06/15/20 06:59 06:59 06:59 Intake Total 1000 Balance 1000 Weight 90.718 kg General appearance: PRESENT: other - Agitated Head exam: PRESENT: normocephalic Eye exam: PRESENT: EOMI Mouth exam: PRESENT: dry mucosa Respiratory exam: PRESENT: rhonchi Cardiovascular exam: PRESENT: RRR Pulses: PRESENT: normal carotid pulses, normal radial pulses Rectal exam: PRESENT: deferred Musculoskeletal exam: PRESENT: full ROM Neurological exam: PRESENT: oriented to person, oriented to place, oriented to time, oriented to situation Psychiatric exam: PRESENT: appropriate affect Results Laboratory Results: 06/15/20 01:40 06/15/20 01:40 06/15/20 06/15/20 01:40 01:40 WBC 3.9 L RBC 4.56 Hgb 12.1 L Hct 36.5 L MCV 80 MCH 26.5 L MCHC 33.1 RDW 21.1 H Plt Count 240 Seg Neutrophils % 66.2 Sodium 138.4 Potassium 3.6 Chloride 99 Carbon Dioxide 20 L Anion Gap 19 BUN 11 Creatinine 1.21 Est GFR ( Amer) > 60 Glucose 113 H Calcium 9.1 Total Bilirubin 0.5 AST 101 H Alkaline Phosphatase 106 Total Protein 9.2 H Albumin 4.7 Lipase 145.2 06/15/20 01:40 Troponin I < 0.012 Impressions: Chest X-Ray 06/15/20 02:22 IMPRESSION: 1. No acute pulmonary findings. Assessment & Plan - Diagnosis (1) Upper GI bleed Is this a current diagnosis for this admission?: Yes Plan: Impression: 54-year-old white male with multiple comorbidities with 2 episodes of hematemesis, no significant drop in hemoglobin; uncontrolled hypertension. First episode of upper GI bleed, rule out gastritis, peptic ulcer disease, esophageal varices. Recommendations: 1. Patient admitted to the hospital service for observation, holding of pharmacologic anticoagulation. 2. Patient just discovered to have Covid infection. Will need to be managed by the medicine service accordingly 3. Surgery will follow in consultation; no indication for endoscopic intervention at this moment (2) Alcoholic Is this a current diagnosis for this admission?: Yes (3) History of DVT (deep vein thrombosis) Is this a current diagnosis for this admission?: Yes (4) Pulmonary embolus Is this a current diagnosis for this admission?: Yes (5) COVID-19 Is this a current diagnosis for this admission?: Yes (6) Uncontrolled hypertension Is this a current diagnosis for this admission?: Yes (7) Anticoagulated Is this a current diagnosis for this admission?: Yes (8) Smoker Is this a current diagnosis for this admission?: Yes
[2020-06-15 07:48] LABS: ABSOLUTE LYMPHOCYTES (AUTO) 1.1 10^3/uL (0.5-4.7); ABSOLUTE MONOCYTES (AUTO) 0.5 10^3/uL (0.1-1.4); BASOPHILS % (AUTO) 0.8 % (0-2); EOSINOPHILS % (AUTO) 0.2 % (0-6); HEMATOCRIT 35.3 % (37.9-51.0); HEMOGLOBIN 11.9 g/dL (13.5-17.0); LYMPHOCYTES % (AUTO) 30.6 % (13-45); MEAN CORPUSCULAR HEMOGLOBIN 26.8 pg (27.0-33.4); MEAN CORPUSCULAR HGB CONC 33.7 g/dL (32.0-36.0); MEAN CORPUSCULAR VOLUME 80 fl (80-97); MONOCYTES % (AUTO) 14.2 % (3-13); PLATELET COUNT 188 10^3/uL (150-450); RED BLOOD COUNT 4.44 10^6/uL (4.35-5.55); RED CELL DISTRIBUTION WIDTH 21.1 % (11.5-14.0); SEGMENTED NEUTROPHILS % (AUTO) 54.2 % (42-78); TOTAL CELLS COUNTED % (AUTO) 100 %; WHITE BLOOD COUNT 3.6 10^3/uL (4.0-10.5)
[2020-06-15 08:08] LABS: CREATINE KINASE 129 U/L (55-170)
[2020-06-15 08:41] LABS: C-REACTIVE PROTEIN < 5.0 mg/L (<10.0)
--- NOTE | 2020-06-15 08:50 | EKG REPORT ---
SEVERITY:- BORDERLINE ECG - SINUS TACHYCARDIA BORDERLINE R WAVE PROGRESSION, ANTERIOR LEADS : Confirmed by: Wojciech Avila MD 15-Jun-2020 08:49:53
[2020-06-15] MEDS ORDERED: DIAZEPAM INJ 10 MG/2 ML DISP.SYRIN IV SCH ×2 (09:00→12:00)
[2020-06-15] MEDS ORDERED: HYDRALAZINE HCL INJ/PF 20 MG/1 ML SDV IV ONE (09:30)
[2020-06-15] MEDS: PANTOPRAZOLE SODIUM 40 MG VIAL IV SCH ×2 (09:36→21:51)
[2020-06-15] MEDS: RINGERS SOLUTION,LACTATED 1,000 ML IV PRN ×2 (09:40→20:46)
[2020-06-15] MEDS ORDERED: METOPROLOL TARTRATE PF/INJ 5 MG/5 ML SDV IV ONE (10:00)
[2020-06-15] MEDS ORDERED: METOPROLOL TARTRATE PF/INJ 5 MG/5 ML SDV IV SCH (12:30)
[2020-06-15] MEDS ORDERED: LABETALOL HCL INJ 20 MG/4 ML DISP.SYRIN IV ONE (13:00)
[2020-06-15] MEDS: NORMAL SALINE 500 ML with OCTREOTIDE ACETATE 500 MCG IV PRN ×2 (13:03)
[2020-06-15 15:35] LABS: HEMATOCRIT 35.5 % (37.9-51.0); HEMOGLOBIN 11.6 g/dL (13.5-17.0); MEAN CORPUSCULAR HEMOGLOBIN 26.4 pg (27.0-33.4); MEAN CORPUSCULAR HGB CONC 32.8 g/dL (32.0-36.0); MEAN CORPUSCULAR VOLUME 81 fl (80-97); PLATELET COUNT 182 10^3/uL (150-450); RED BLOOD COUNT 4.41 10^6/uL (4.35-5.55); RED CELL DISTRIBUTION WIDTH 21.4 % (11.5-14.0)
[2020-06-15 15:37] LABS: WHITE BLOOD COUNT 2.3 10^3/uL (4.0-10.5)
--- NOTE | 2020-06-15 16:06 | Progress Note ---
Provider Note Provider Note: The patient is a 54-year-old male with a past medical history significant for hypertension, COPD, recurrent DVT and pulmonary embolus, chronically anticoagulated on Eliquis, hepatitis C, abdominal hernia status post Linda fundoplication, bipolar disorder, and alcohol abuse (states that he used to be a heavy drinker but now only drinks on special occasions) who was admitted early this morning by the pot reliner for Upper GI bleed, COVID-19, and hypertensive urgency. Overnight events, vital signs, laboratory results, imaging, H&P, consultation notes, and orders reviewed. Agree with the plan of care as established by the previous provider. Discussed patient's hx in further detail. Last EGD just over a year ago when he was diagnosed with candidiasis. He states that he did not have esophageal varices at that time. 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 In addition, patient is placed on as needed labetalol for blood pressure control. Start clonidine patch (takes 0.2 mg TID as home medication). Continue twice daily IV Protonix. Continue IV octreotide. Start on Carafate AC at bedtime. IV thiamine and folic acid nightly. CIWA protocol with as needed Ativan. Continue n.p.o. diet. Serial CBCs.
[2020-06-15] MEDS ORDERED: ACETAMINOPHEN 650 MG SUPP.RECT PR PRN (16:12)
[2020-06-15] MEDS ORDERED: LIDOCAINE 5% (700 MG) TRANSDERMAL ADH..PATCH TP ONE (17:00)
--- NOTE | 2020-06-15 17:34 | EKG REPORT ---
SEVERITY:- BORDERLINE ECG - SINUS RHYTHM BORDERLINE PROLONGED QT INTERVAL : Confirmed by: Wojciech Avila MD 15-Jun-2020 17:34:18
[2020-06-15] MEDS: LABETALOL HCL INJ 20 MG/4 ML DISP.SYRIN IV PRN (17:35)
[2020-06-15] MEDS: LORAZEPAM INJ 2 MG/1 ML VIAL IV PRN (17:35)
[2020-06-15] MEDS ORDERED: NORMAL SALINE 1000 ML 1,000 ML with POTASSIUM CHLORIDE 20 MEQ, MAGNESIUM SULFATE 8 MEQ,... IV SCH ×5 (18:00)
[2020-06-15] MEDS ORDERED: CLONIDINE 0.2 MG/24 HR PATCH.TDWK TD SCH (18:00)
[2020-06-15] MEDS: SUCRALFATE 1 GM TABLET PO SCH ×2 (19:01→21:51)
[2020-06-15] MEDS: THIAMINE HCL 100 MG, FOLIC ACID 1 MG in NORMAL SALINE 250 ML IV SCH (21:51)
[2020-06-15] MEDS: FLUTICASONE PROPIONATE HFA 110 MCG/PUFF 12 GM MDI IH SCH (21:54)
[2020-06-15 22:45] LABS: HEMATOCRIT 35.1 % (37.9-51.0); HEMOGLOBIN 11.7 g/dL (13.5-17.0); MEAN CORPUSCULAR HEMOGLOBIN 26.8 pg (27.0-33.4); MEAN CORPUSCULAR HGB CONC 33.3 g/dL (32.0-36.0); MEAN CORPUSCULAR VOLUME 81 fl (80-97); PLATELET COUNT 195 10^3/uL (150-450); RED BLOOD COUNT 4.35 10^6/uL (4.35-5.55); RED CELL DISTRIBUTION WIDTH 21.6 % (11.5-14.0); WHITE BLOOD COUNT 2.3 10^3/uL (4.0-10.5)
[2020-06-16] MEDS: NORMAL SALINE 500 ML with OCTREOTIDE ACETATE 500 MCG IV PRN ×4 (00:31→10:58)
[2020-06-16] MEDS: LABETALOL HCL INJ 20 MG/4 ML DISP.SYRIN IV PRN ×2 (02:09→12:51)
[2020-06-16 06:40] LABS: ABSOLUTE RETICS # 0.049 10^6/uL (0.028-0.122); HEMATOCRIT 34.4 % (37.9-51.0); HEMOGLOBIN 11.3 g/dL (13.5-17.0); MEAN CORPUSCULAR HEMOGLOBIN 26.4 pg (27.0-33.4); MEAN CORPUSCULAR HGB CONC 32.9 g/dL (32.0-36.0); MEAN CORPUSCULAR VOLUME 81 fl (80-97); PLATELET COUNT 174 10^3/uL (150-450); RED BLOOD COUNT 4.28 10^6/uL (4.35-5.55); RED CELL DISTRIBUTION WIDTH 21.1 % (11.5-14.0); RETICULOCYTE COUNT (AUTO) 1.15 % (0.66-2.85); WHITE BLOOD COUNT 2.1 10^3/uL (4.0-10.5)
[2020-06-16 07:02] LABS: ALBUMIN 3.9 g/dL (3.5-5.0); ALKALINE PHOSPHATASE 84 U/L (38-126); ANION GAP 9 (5-19); ASPARTATE AMINO TRANSFERASE 81 U/L (17-59); BILIRUBIN,DIRECT 0.2 mg/dL (0.0-0.4); BILIRUBIN,TOTAL 0.9 mg/dL (0.2-1.3); BLOOD UREA NITROGEN 9 mg/dL (7-20); CALCIUM 8.3 mg/dL (8.4-10.2); CARBON DIOXIDE 26 mmol/L (22-30); CHLORIDE 100 mmol/L (98-107); GLUCOSE 117 mg/dL (75-110); POTASSIUM 3.9 mmol/L (3.6-5.0); TOTAL PROTEIN 7.5 g/dL (6.3-8.2)
--- NOTE | 2020-06-16 08:25 | Progress Note ---
Provider Note Provider Note: 54-year-old male with a history of alcoholism and hepatitis, anticoagulated on Eliquis. Reported episode of coffee-ground emesis. Hemoglobin stable. No hematemesis. The patient is currently Covid positive. Hold Eliquis. Continue PPI. At present, the patient appears stable. There is no indication for u rgent/emergent surgical intervention. Surgery will sign off at this time. Please renotify with any questions or concerns.
[2020-06-16] MEDS: SUCRALFATE 1 GM TABLET PO SCH ×4 (08:26→21:13)
[2020-06-16] MEDS: RINGERS SOLUTION,LACTATED 1,000 ML IV PRN (08:39)
[2020-06-16] MEDS ORDERED: AMLODIPINE BESYLATE 5 MG TABLET PO SCH (10:00)
[2020-06-16] MEDS ORDERED: CLONIDINE HCL 0.1 MG TABLET PO SCH (10:00)
[2020-06-16] MEDS ORDERED: LOSARTAN POTASSIUM 50 MG TABLET PO SCH (10:00)
[2020-06-16] MEDS: CLONIDINE HCL 0.2 MG TABLET PO SCH ×3 (10:58→21:13)
[2020-06-16] MEDS: ROPINIROLE HCL 1 MG TABLET PO SCH ×3 (10:58→17:26)
[2020-06-16] MEDS: PANTOPRAZOLE SODIUM 40 MG VIAL IV SCH ×2 (10:59→21:13)
[2020-06-16] MEDS: FLUTICASONE PROPIONATE HFA 110 MCG/PUFF 12 GM MDI IH SCH ×2 (11:00→21:14)
[2020-06-16] MEDS ORDERED: ACETAMINOPHEN 325 MG TABLET PO PRN (13:35)
[2020-06-16] MEDS: LORAZEPAM INJ 2 MG/1 ML VIAL IV PRN (15:38)
[2020-06-16] MEDS: THIAMINE HCL 100 MG, FOLIC ACID 1 MG in NORMAL SALINE 250 ML IV SCH (17:25)
--- NOTE | 2020-06-16 18:33 | PDOC PROGRESS REPORT ---
Subjective Date:: 06/16/20 Subjective:: The patient is a 54-year-old male with a past medical history significant for hypertension, COPD, recurrent DVT and pulmonary embolus, chronically anticoagulated on Eliquis, hepatitis C, abdominal hernia status post Linda fundoplication, bipolar disorder, and alcohol dependence who was admitted 06/15/19 for Upper GI bleed, COVID-19, and hypertensive urgency. The patient was seen on afternoon rounds. He is found resting in bed, comfortably, on room air. He initially denies all symptoms, however then has numerous, trivial, complaints. He does complain of continued epigastric pain described as burning that worsened upon drinking fluids this morning. He has had no further episodes of emesis. He denies fever, chest pain, palpitations, dyspnea, nausea, vomiting, diarrhea. No concerns per nursing. Reason For Visit: UPPER GI BLEED Physical Exam Vital Signs: Temp Pulse Resp BP Pulse Ox 98.4 F 63 16 143/92 H 96 06/16/20 17:12 06/16/20 17:12 06/16/20 17:12 06/16/20 17:12 06/16/20 17:12 Intake & Output 06/15/20 06/16/20 06/17/20 06:59 06:59 06:59 Intake Total 1000 3001.2 1303 Output Total 2850 Balance 1000 151.2 1303 Weight 90.718 kg 88 kg General appearance: PRESENT: no acute distress, disheveled, well-developed, well-nourished Head exam: PRESENT: atraumatic, normocephalic Eye exam: PRESENT: conjunctiva pink, EOMI, PERRLA. ABSENT: scleral icterus Mouth exam: PRESENT: moist, tongue midline Respiratory exam: PRESENT: clear to auscultation lisa, symmetrical, unlabored, other - room air. ABSENT: rales, rhonchi, wheezes Cardiovascular exam: PRESENT: RRR. ABSENT: diastolic murmur, rubs, systolic murmur Pulses: PRESENT: normal dorsalis pedis pul Vascular exam: PRESENT: normal capillary refill GI/Abdominal exam: PRESENT: normal bowel sounds, soft, tenderness - epigastric. ABSENT: distended, guarding, mass, organolmegaly, rebound Rectal exam: PRESENT: deferred Extremities exam: PRESENT: full ROM. ABSENT: calf tenderness, clubbing, pedal edema Neurological exam: PRESENT: alert, awake, oriented to person, oriented to place, oriented to time, oriented to situation, CN II-XII grossly intact. ABSENT: motor sensory deficit Psychiatric exam: PRESENT: appropriate affect, normal mood. ABSENT: homicidal ideation, suicidal ideation Skin exam: PRESENT: dry, intact, warm. ABSENT: cyanosis, rash Results Laboratory Results: 06/16/20 05:31 06/16/20 05:31 06/15/20 06/16/20 06/16/20 22:31 05:31 05:31 WBC 2.3 L 2.1 L RBC 4.35 4.28 L Hgb 11.7 L 11.3 L Hct 35.1 L 34.4 L MCV 81 81 MCH 26.8 L 26.4 L MCHC 33.3 32.9 RDW 21.6 H 21.1 H Plt Count 195 174 Retic Count (auto) 1.15 Sodium 135.4 L Potassium 3.9 Chloride 100 Carbon Dioxide 26 Anion Gap 9 BUN 9 Creatinine 1.03 Est GFR ( Amer) > 60 Glucose 117 H Calcium 8.3 L Iron 120.0 TIBC 436 % Saturation 28 Ferritin 15.10 L Total Bilirubin 0.9 AST 81 H Alkaline Phosphatase 84 Total Protein 7.5 Albumin 3.9 Vitamin B12 > 1000.0 H Folate 19.90 06/15/20 06/15/20 06/15/20 01:40 07:33 07:33 Creatine Kinase 129 Troponin I < 0.012 < 0.012 06/15/20 13:22 Creatine Kinase Troponin I < 0.012 Impressions: Chest X-Ray 06/15/20 02:22 IMPRESSION: 1. No acute pulmonary findings. Assessment and Plan - Diagnosis (1) Upper GI bleed Is this a current diagnosis for this admission?: Yes Plan: Imoroved; No further episodes; H&H stable Patient presents with 2 episodes of hematemesis and epigastric pain Hemodynamically stable Has a history of hep C infection, he admits to drinking alcohol occasionally. Hx of dependence/abuse. Has no peripheral stigmata of chronic liver disease Liver, spleen and portal system appeared normal on CT abdomen with no sign of cirrhosis Continue pantoprazole IV tiwce daily. Received octreotide drip x2 hrs Carafate ACHS Hold anticoagulation Surgery consult for possible endoscopy; they have signed off. Closely monitor for any sign of hemodynamic instability Cautiously advance diet. (2) Uncontrolled hypertension Is this a current diagnosis for this admission?: Yes Plan: Improved; 211/128-> 143/92 Patient has history of difficult to control hypertension and is on multiple antihypertensive; questionable compliance Continue clonidine 0.2 mg every 8 hours. Increase home dose amlodipine to 10 mg daily and losartan to 50 mg daily. Labetalol as needed blood pressure control. (3) COVID-19 virus infection Is this a current diagnosis for this admission?: Yes Plan: The patient reports subjective fevers, chills and dry cough Denies any shortness of breath Currently saturating well on room air Ferritin 14.6, CRP <5, CK 129 Continue on vitamin C, vitamin D, zinc Continue supportive treatment Closely monitor respiratory status (4) History of DVT (deep vein thrombosis) Is this a current diagnosis for this admission?: Yes Plan: Patient reports that he had extensive upper extremity DVT involving including the subclavian Currently admitted for possible upper GI bleed Holding anticoagulation Consider hematology consult (5) Pulmonary embolus Is this a current diagnosis for this admission?: Yes Plan: Currently denies any chest pain or shortness of breath Anticoagulation held because of GI bleed - Time Time Spent with patient: 25-34 minutes Medications reviewed and adjusted accordingly: Yes Anticipated Discharge Disposition: Home, Self Care Anticipated Discharge Timeframe: within 24 hours
[2020-06-16] MEDS: DIAZEPAM 5 MG TABLET PO SCH (18:45)
[2020-06-16] MEDS: LOSARTAN POTASSIUM 50 MG TABLET PO SCH (21:13)
[2020-06-16] MEDS ORDERED: NORTRIPTYLINE HCL 10 MG CAPSULE PO SCH (22:00)
[2020-06-17] MEDS: DIAZEPAM 5 MG TABLET PO SCH ×2 (00:02→06:25)
[2020-06-17 06:03] LABS: HEMATOCRIT 33.3 % (37.9-51.0); HEMOGLOBIN 11.1 g/dL (13.5-17.0); MEAN CORPUSCULAR HEMOGLOBIN 26.7 pg (27.0-33.4); MEAN CORPUSCULAR HGB CONC 33.3 g/dL (32.0-36.0); MEAN CORPUSCULAR VOLUME 80 fl (80-97); PLATELET COUNT 152 10^3/uL (150-450); RED BLOOD COUNT 4.15 10^6/uL (4.35-5.55); RED CELL DISTRIBUTION WIDTH 21.2 % (11.5-14.0); WHITE BLOOD COUNT 2.2 10^3/uL (4.0-10.5)
[2020-06-17 06:23] VITALS: BP 140/96
[2020-06-17] MEDS: CLONIDINE HCL 0.2 MG TABLET PO SCH (06:25)
[2020-06-17] MEDS: SUCRALFATE 1 GM TABLET PO SCH (08:33)
[2020-06-17] MEDS: PANTOPRAZOLE SODIUM 40 MG VIAL IV SCH (09:15)
[2020-06-17] MEDS: LOSARTAN POTASSIUM 50 MG TABLET PO SCH (09:15)
[2020-06-17] MEDS: ROPINIROLE HCL 1 MG TABLET PO SCH (09:15)
[2020-06-17] MEDS: FLUTICASONE PROPIONATE HFA 110 MCG/PUFF 12 GM MDI IH SCH (09:22)
[2020-06-17] MEDS ORDERED: AMLODIPINE BESYLATE 10 MG TABLET PO SCH (10:00)
[2020-06-17] MEDS ORDERED: AMLODIPINE BESYLATE 5 MG TABLET PO SCH (10:00)
--- NOTE | 2020-06-17 13:57 | PDOC DISCHARGE SUMMARY ---
Impression - Admit/DC Date/PCP Admission Date/Primary Care Provider: 06/15/20 06:32 Discharge Date: 06/17/20 - Discharge Diagnosis (1) Upper GI bleed Is this a current diagnosis for this admission?: Yes (2) Uncontrolled hypertension Is this a current diagnosis for this admission?: Yes (3) COVID-19 virus infection Is this a current diagnosis for this admission?: Yes (4) History of DVT (deep vein thrombosis) Is this a current diagnosis for this admission?: Yes (5) Pulmonary embolus Is this a current diagnosis for this admission?: Yes - Additional Information Resuscitation Status: Full Code Discharge Diet: As Tolerated, Cardiac Discharge Activity: Activity As Tolerated, Balance Activity w/Rest, Slowly Increase Activity Prescriptions: Sucralfate [Carafate 1 gm Tablet] 1 gm PO ACHS #120 tablet Losartan Potassium [Cozaar 50 mg Tablet] 50 mg PO Q12 #60 tablet Amlodipine Besylate [Norvasc 10 mg Tablet] 10 mg PO DAILY #30 tablet Pantoprazole Sodium [Protonix [address] Tablet] 40 mg PO QAMPM #60 tablet. Home Medications: Clonidine HCl [Catapres 0.1 mg Tablet] 0.2 mg PO TID 06/15/20 Cyanocobalamin (Vitamin B-12) [B-12] 1,000 mcg PO DAILY 06/15/20 Docusate Sodium [Colace 100 mg Capsule] 100 mg PO DAILY 06/15/20 Ferrous Sulfate [Feosol 325 mg Tablet] 325 mg PO DAILY 06/15/20 Fluticasone Propionate [Flovent Hfa 110 Mcg Inhalation Aerosol 12 gm] 2 puff IH Q12 06/15/20 Nortriptyline HCl [Pamelor 10 mg Capsule] 20 mg PO QHS 06/15/20 Ropinirole HCl 1 mg PO TID 06/15/20 Acetaminophen [Tylenol 325 mg Tablet] 650 mg PO Q4HP PRN tablet 06/17/20 Amlodipine Besylate [Norvasc 10 mg Tablet] 10 mg PO DAILY #30 tablet 06/17/20 Losartan Potassium [Cozaar 50 mg Tablet] 50 mg PO Q12 #60 tablet 06/17/20 Pantoprazole Sodium [Protonix [address] Tablet] 40 mg PO QAMPM #60 tablet. 06/17/20 Sucralfate [Carafate 1 gm Tablet] 1 gm PO ACHS #120 tablet 06/17/20 History of Present Illiness History of Present Illness: Per H&P by Dr. Smith: CEASAR ANN is a 54 year old male with history of bilateral upper extremity DVT involving the subclavian, history of PE on apixaban, hepatitis C, hypertension and capital hernia status post Linda fundoplication now presents to the ED with 2 episodes of vomiting of bright red blood. Patient reports that the bleeding amount of cup of coffee and he thought some clotted blood in it. Associated with this patient also endorses 1 day duration of epigastric pain. He states that he has been feeling dizzy. His last dose of apixaban was the morning before presentation. Patient also states that he lost his due to COVID-19 recently and reports few days duration of subjective fever, chills, occasional dry cough but denies any shortness of breath, chest pain, palpitation. Patient also denies history of melena, hematochezia, hematuria. Hospital Course Hospital Course: (1) Upper GI bleed Resolved; No further episodes, H&H stable, tolerating a sof diet Patient presents with 2 episodes of hematemesis and epigastric pain Hemodynamically stable Has a history of hep C infection, he admits to drinking alcohol occasionally. Hx of dependence/abuse. Has no peripheral stigmata of chronic liver disease Liver, spleen and portal system appeared normal on CT abdomen with no sign of cirrhosis Received pantoprazole IV tiwce daily.; d/c with Rx for oral protonix Received octreotide drip x24 hrs Carafate ACHS; Rx provided Hold anticoagulation until follow up with PCP Surgery consult for possible endoscopy; they have signed off. Advised to not drink any amount of alcohol. (2) Uncontrolled hypertension Improved; 211/128-> 131/84 Patient has history of difficult to control hypertension and is on multiple antihypertensive; questionable compliance Continue clonidine 0.2 mg every 8 hours. Increased home dose amlodipine to 10 mg daily and losartan to 50 mg daily. Outpatient PCP follow up (3) COVID-19 virus infection Maintaining oxygen on room air; asymptomatic on day of discharge. Ferritin 14.6, CRP <5, CK 129 Continue on vitamin C, vitamin D, zinc (4) History of DVT (deep vein thrombosis) Patient reports that he had extensive upper extremity DVT involving including the subclavian Currently admitted for possible upper GI bleed Holding anticoagulation (5) Pulmonary embolus Currently denies any chest pain or short Patient is advised to hold Eliquis until his follow up with his PCP. Physical Exam Vital Signs: Temp Pulse Resp BP Pulse Ox 98.4 F 71 16 140/96 H 93 06/17/20 10:48 06/17/20 10:48 06/17/20 10:48 06/17/20 04:05 06/17/20 10:48 Intake & Output 06/16/20 06/17/20 06/18/20 06:59 06:59 06:59 Intake Total 3001.2 2812.2 Output Total 2850 1975 Balance 151.2 837.2 Weight 88 kg 90.4 kg General appearance: PRESENT: no acute distress, cooperative, well-developed, well-nourished - overweight Head exam: PRESENT: atraumatic, normocephalic Eye exam: PRESENT: conjunctiva pink, EOMI, PERRLA. ABSENT: scleral icterus Mouth exam: PRESENT: moist, tongue midline Respiratory exam: PRESENT: clear to auscultation lisa, other - room air. ABSENT: rales, rhonchi, wheezes Cardiovascular exam: PRESENT: RRR. ABSENT: diastolic murmur, rubs, systolic murmur Pulses: PRESENT: normal dorsalis pedis pul Vascular exam: PRESENT: normal capillary refill GI/Abdominal exam: PRESENT: normal bowel sounds, soft, tenderness - epigastric. ABSENT: distended, guarding, mass, organolmegaly, rebound Rectal exam: PRESENT: deferred Extremities exam: PRESENT: full ROM. ABSENT: calf tenderness, clubbing, pedal edema Neurological exam: PRESENT: alert, awake, oriented to person, oriented to place, oriented to time, oriented to situation, CN II-XII grossly intact. ABSENT: motor sensory deficit Psychiatric exam: PRESENT: appropriate affect, normal mood. ABSENT: homicidal ideation, suicidal ideation Skin exam: PRESENT: dry, intact, warm. ABSENT: cyanosis, rash Results Laboratory Results: WBC 2.2 10^3/uL (4.0-10.5) L 06/17/20 04:39 RBC 4.15 10^6/uL (4.35-5.55) L 06/17/20 04:39 Hgb 11.1 g/dL (13.5-17.0) L 06/17/20 04:39 Hct 33.3 % (37.9-51.0) L 06/17/20 04:39 MCV 80 fl (80-97) 06/17/20 04:39 MCH 26.7 pg (27.0-33.4) L 06/17/20 04:39 MCHC 33.3 g/dL (32.0-36.0) 06/17/20 04:39 RDW 21.2 % (11.5-14.0) H 06/17/20 04:39 Plt Count 152 10^3/uL (150-450) 06/17/20 04:39 Lymph % (Auto) 30.6 % (13-45) 06/15/20 07:33 Hubbard % (Auto) 14.2 % (3-13) H 06/15/20 07:33 Eos % (Auto) 0.2 % (0-6) 06/15/20 07:33 Baso % (Auto) 0.8 % (0-2) 06/15/20 07:33 Reticulocyte # 0.049 10^6/uL (0.028-0.122) 06/16/20 05:31 Absolute Neuts (auto) 2.0 10^3/uL (1.7-8.2) 06/15/20 07:33 Absolute Lymphs (auto) 1.1 10^3/uL (0.5-4.7) 06/15/20 07:33 Absolute Monos (auto) 0.5 10^3/uL (0.1-1.4) 06/15/20 07:33 Absolute Eos (auto) 0.0 10^3/uL (0.0-0.6) 06/15/20 07:33 Absolute Basos (auto) 0.0 10^3/uL (0.0-0.2) 06/15/20 07:33 Seg Neutrophils % 54.2 % (42-78) 06/15/20 07:33 Retic Count (auto) 1.15 % (0.66-2.85) 06/16/20 05:31 PT 13.2 SEC (11.4-15.4) 06/15/20 01:40 INR 0.98 06/15/20 01:40 D-Dimer 0.27 ug/mL (0.00-0.50) 06/15/20 07:33 Sodium 135.4 mmol/L (137-145) L 06/16/20 05:31 Potassium 3.9 mmol/L (3.6-5.0) 06/16/20 05:31 Chloride 100 mmol/L (98-107) 06/16/20 05:31 Carbon Dioxide 26 mmol/L (22-30) 06/16/20 05:31 Anion Gap 9 (5-19) 06/16/20 05:31 BUN 9 mg/dL (7-20) 06/16/20 05:31 Creatinine 1.03 mg/dL (0.52-1.25) 06/16/20 05:31 Est GFR ( Amer) > 60 (>60) 06/16/20 05:31 Est GFR (MDRD) Non-Af > 60 (>60) 06/16/20 05:31 Glucose 117 mg/dL (75-110) H 06/16/20 05:31 POC Glucose 112 mg/dL (70-110) H 06/15/20 18:21 Calcium 8.3 mg/dL (8.4-10.2) L 06/16/20 05:31 Iron 120.0 ug/dL (49-181) 06/16/20 05:31 TIBC 436 ug/dL (250-450) 06/16/20 05:31 % Saturation 28 % 06/16/20 05:31 Ferritin 15.10 ng/mL (17.9-464.0) L 06/16/20 05:31 Total Bilirubin 0.9 mg/dL (0.2-1.3) 06/16/20 05:31 Direct Bilirubin 0.2 mg/dL (0.0-0.4) 06/16/20 05:31 Neonat Total Bilirubin Not Reportable 06/16/20 05:31 Neonat Direct Bilirubin Not Reportable 06/16/20 05:31 Neonat Indirect Bili Not Reportable 06/16/20 05:31 AST 81 U/L (17-59) H 06/16/20 05:31 ALT 64 U/L (<50) H 06/16/20 05:31 Alkaline Phosphatase 84 U/L (38-126) 06/16/20 05:31 Creatine Kinase 129 U/L (55-170) 06/15/20 07:33 Troponin I < 0.012 ng/mL 06/15/20 13:22 C-Reactive Protein < 5.0 mg/L (<10.0) 06/15/20 07:33 Total Protein 7.5 g/dL (6.3-8.2) 06/16/20 05:31 Albumin 3.9 g/dL (3.5-5.0) 06/16/20 05:31 Lipase 145.2 U/L (23-300) 06/15/20 01:40 Vitamin B12 > 1000.0 pg/mL (239-931) H 06/16/20 05:31 Folate 19.90 ng/mL (>2.76) 06/16/20 05:31 Acetaminophen < 10 ug/mL (10-30) L 06/15/20 01:40 Serum Alcohol 79 mg/dL (NONE DETECTED) 06/15/20 01:40 Influenza A (RT-PCR) NEGATIVE (NEGATIVE) 06/15/20 05:10 Influenza B (RT-PCR) NEGATIVE (NEGATIVE) 06/15/20 05:10 RSV (RT-PCR) NEGATIVE (NEGATIVE) 06/15/20 05:10 SARS-CoV-2 Rap RNA(RT-PCR) POSITIVE (NEGATIVE) 06/15/20 05:10 Blood Type O POSITIVE 06/15/20 05:30 Antibody Screen NEGATIVE 06/15/20 05:30 06/15/20 06/15/20 06/15/20 01:40 07:33 13:22 Troponin I < 0.012 < 0.012 < 0.012 Impressions: Chest X-Ray 06/15/20 02:22 IMPRESSION: 1. No acute pulmonary findings. Plan Plan of Treatment: Patient is discharged home in stable condition. He is advised to take his medications as prescribed. Do NOT drink any amount of alcohol. Return to the emergency department, as needed, for concerning symptoms. Time Spent: Greater than 30 Minutes Stroke Is this a Stroke Patient?: No Acute Heart Failure Is this a Heart Failure Patient?: No
== END 2020-06-17 15:24 | disposition home or self-care (01) | DRG 377 ==
LOC: ER 01:18 → EH 06:32 → 3N 13:51
PROVIDERS: ADMIT Student in an Organized Health Care Education/Training Program; ATTEND Registered Nurse
DX: K92.0 Hematemesis (principal); U07.1 COVID-19; I10 Essential (primary) hypertension; J44.9 Chronic obstructive pulmonary disease, unspecified; K21.9 Gastro-esophageal reflux disease without esophagitis; F31.9 Bipolar disorder, unspecified; F10.20 Alcohol dependence, uncomplicated; K44.9 Diaphragmatic hernia without obstruction or gangrene; Z79.899 Other long term (current) drug therapy; Z79.51 Long term (current) use of inhaled steroids; Z63.4 Disappearance and death of family member; Z86.19 Personal history of other infectious and parasitic diseases; Z88.0 Allergy status to penicillin; Z88.8 Allergy status to other drugs, medicaments and biological substances; Z79.01 Long term (current) use of anticoagulants; Z86.711 Personal history of pulmonary embolism
CPT/HCPCS: 36415; 71045; 71275; 74174; 80053; 80307; 82550; 82607; 82728; 82746; 82962; 83540; 83550; 83690; 84484; 85025; 85027; 85045; 85379; 85610; 86140; 86850; 86900; 86901; 93005; 93010; 96361; 96374; 96375; 99285; 0241U; C9113; C9803; J2060; J2270; J2354; J2405; J3360; J3411; J3490; J7030; J7040; J7050; J7120